=== PATIENT | male | born 1995 | race African-American/Black ===

== ENCOUNTER 2024-01-19 07:18 | Emergency (ER) | payer OTHER ==
[~2024-01-19] VITALS: Ht 182.9 cm; Wt 79.4 kg
[2024-01-19] MEDS ORDERED: dexaMETHasone SOD PHOSPHATE 1 ML ONE (08:29)
[2024-01-19] MEDS ORDERED: KETOROLAC TROMETHAMINE 15 MG/ML VIAL ONE (08:29)
[2024-01-19] MEDS: IV NS 0.9% 1,000 ML BAG IV ONE (08:30)
[2024-01-19] MEDS: dexaMETHasone SOD PHOSPHATE 10 MG/ML VIAL IV ONE (08:30)
[2024-01-19] MEDS: KETOROLAC TROMETHAMINE 15 MG/ML VIAL IV ONE (08:30)
[2024-01-19] MEDS: PIPERACILLIN /TAZOBACTAM 3.375 G in IV D5W 50 ML IV ONE (08:30)
[2024-01-19] MEDS ORDERED: PIPERACI/TAZO 3.375GM/D5W 50ML PB IV ONE (08:31)
[2024-01-19] MEDS ORDERED: diphenhydrAMINE HCL 50 MG/ML VIAL ONE (08:39)
[2024-01-19] MEDS ORDERED: FAMOTIDINE/PF INJ 20 MG/2 ML VIAL IV ONE (08:39)
[2024-01-19 08:41] LABS: BASOPHILS % (AUTO) 0.2 % (0.0-2.0); EOSINOPHILS # (AUTO) 0.1 K/uL (0.0-0.7); EOSINOPHILS % (AUTO) 0.5 % (0.0-6.0); HEMATOCRIT 41 % (39-51); HEMOGLOBIN 13.4 g/dL (13.5-17.5); LYMPHOCYTES # (AUTO) 0.9 K/uL (0.8-4.8); LYMPHOCYTES % (AUTO) 7.3 % (20.0-44.0); MEAN CORPUSCULAR HEMOGLOBIN 29 PG (26.0-33.0); MEAN CORPUSCULAR HGB CONC 33 g/dl (31.0-36.0); MEAN CORPUSCULAR VOLUME 89 fL (80-96); MONOCYTES # (AUTO) 1.1 K/uL (0.1-1.30); MONOCYTES % (AUTO) 8.7 % (2.0-12.0); NEUTROPHILS # (AUTO) 10.7 K/uL (1.8-8.9); NEUTROPHILS % (AUTO) 83.3 % (43.0-81.0); PLATELET COUNT (AUTO) 256 K/uL (150-450); RED CELL DISTRIBUTION WIDTH 13.7 % (11.5-15.0); WHITE BLOOD COUNT (AUTO) 12.9 K/uL (4.3-11.0)
[2024-01-19] MEDS ORDERED: IOHEXOL-350 100 ML VIAL IV ONE (08:45)
[2024-01-19] MEDS ORDERED: IV NS 0.9% 250 ML IV ONE (08:46)
[2024-01-19] MEDS: FAMOTIDINE/PF INJ 20 MG/2 ML VIAL IV ONE (09:00)
[2024-01-19] MEDS: diphenhydrAMINE HCL 50 MG/ML VIAL IV ONE (09:00)
[2024-01-19 09:06] LABS: CALCIUM, SERUM 8.5 mg/dL (8.5-10.1); CREATININE 0.9 mg/dL (0.6-1.3)
[2024-01-19 09:30] VITALS: TEMP 98.8
[2024-01-19 12:00] VITALS: BP 120/70; O2SAT 98
== END 2024-01-19 08:59 | disposition home or self-care (01) ==
LOC: ER 07:31
DX: J39.0 Retropharyngeal and parapharyngeal abscess (principal); K12.2 Cellulitis and abscess of mouth; Z79.52 Long term (current) use of systemic steroids
CPT/HCPCS: 99291; 96365; 96375; 70491; 85025; 80048; 87040; 36415; 87880; 87070; J1100; J1200; J3490; J2543 ×2; J7060; J7030; J7050; A4223; Q9967; J1885; 86403-TC